=== PATIENT | male | born 1970 | race Caucasian/White ===

== ENCOUNTER 2017-11-30 15:51 | Outpatient (CLI) | payer OTHER, BC | END 2017-11-30 15:52 | disposition critical access hospital (66) | LOC: EMS 15:51 | PROVIDERS: ATTEND Surgery | DX: R07.9 Chest pain, unspecified (principal); V43.53XA Car driver injured in collision with pick-up truck in traffic accident, initial encounter; Y92.413 State road as the place of occurrence of the external cause | CPT/HCPCS: A0425; A0429 ==

== ENCOUNTER 2017-11-30 16:23 | Emergency (ER) | payer OTHER, BC ==
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
[2017-11-30] MEDS ORDERED: IBUPROFEN 600 MG TABLET PO STA (17:36)
[2017-11-30] MEDS ORDERED: ACETAMINOPHEN 325 MG TABLET PO STA (17:36)
[2017-11-30 17:45] VITALS: BP 148/94
== END 2017-11-30 17:46 | disposition home or self-care (01) ==
LOC: ED 16:23
DX: S39.012A Strain of muscle, fascia and tendon of lower back, initial encounter (principal); S20.219A Contusion of unspecified front wall of thorax, initial encounter; V43.53XA Car driver injured in collision with pick-up truck in traffic accident, initial encounter; F17.200 Nicotine dependence, unspecified, uncomplicated
CPT/HCPCS: 99283; A9270

== ENCOUNTER 2019-08-15 11:11 | Outpatient (CLI) | payer BC | END 2019-08-15 11:12 | disposition home or self-care (01) | LOC: COV 11:11 | PROVIDERS: ATTEND Family Medicine | DX: Z53.9 Procedure and treatment not carried out, unspecified reason (principal) | CPT/HCPCS: 81599 ==

== ENCOUNTER 2019-08-16 08:00 | Outpatient (CLI) | payer BC | END 2019-08-16 23:59 | disposition home or self-care (01) | LOC: COV 08:00 | PROVIDERS: ATTEND Family Medicine | DX: R05 Cough (principal) | CPT/HCPCS: 81599 ==